=== PATIENT | female | born 1975 | race Caucasian/White ===

== ENCOUNTER → 2017-01-17 | Outpatient (CLI) | payer BC ==
[~2017-01-17] MED LIST: ATOR10TA88 PO; BCPILLS PO; HYDR-5688 PO; NAPR-1169 PO
--- NOTE | 2017-01-20 14:32 | MAMMOGRAPHY REPORT ---
BILATERAL DIGITAL SCREENING MAMMOGRAM TOMOSYNTHESIS WITH CAD: 01/17/2017 CLINICAL HISTORY: Routine screening. Patient has no complaints. TECHNIQUE: Breast tomosynthesis in addition to standard 2D mammography was performed. Current study was also evaluated with a Computer Aided Detection (CAD) system. COMPARISON: Comparison is made to exams dated: 01/16/2016 mammogram, 01/11/2015 mammogram, and 09/20/2013 mammogram - [facility]. BREAST COMPOSITION: The tissue of both breasts is almost entirely fatty. FINDINGS: There is a 4.1 cm asymmetry seen within the left lateral breast on the cc view, thought to project superiorly on the MLO view, which may represent normal fibroglandular tissue although appear s more conspicuous compared to prior exams. Recommend spot compression tomosynthesis views and possi ble breast ultrasound for further evaluation. Remainder of both breasts are stable compared to prior exams, without suspicious masses, calcificatio ns, or areas of architectural distortion noted. IMPRESSION: ACR BI-RADS CATEGORY 0: INCOMPLETE EVALUATION: NEED ADDITIONAL IMAGING EVALUATION Left breast asymmetry, for which additional imaging evaluation is recommended. The patient will be c alled to schedule an appointment. Approximately 10% of breast cancers are not detected with mammography. A negative mammographic report should not delay biopsy if a clinically suggestive mass is present. Carlie Machado M.D. /:01/17/2017 16:36:33 Corrections Specialist: Tracey TRISTAN)(Cheyanne), [facility] letter sent: Addl Imaging 0 BI-RADS Code: ACR BI-RADS Category 0: Incomplete Evaluation: Need Additional Imaging Evaluation
== END | disposition home or self-care (01) ==
LOC: C.MAMM 08:37
PROVIDERS: ATTEND Obstetrics & Gynecology
DX: Z12.31 Encounter for screening mammogram for malignant neoplasm of breast (principal); N64.9 Disorder of breast, unspecified

== ENCOUNTER → 2017-01-29 | Outpatient (CLI) | payer BC ==
--- NOTE | 2017-01-29 15:59 | MAMMOGRAPHY REPORT ---
UNILATERAL LEFT DIGITAL DIAGNOSTIC MAMMOGRAM TOMOSYNTHESIS AND TARGETED LEFT ULTRASOUND: 01/29/2017 CLINICAL HISTORY: Callback from screening mammogram for left breast asymmetry. TECHNIQUE: Breast tomosynthesis in addition to standard 2D mammography was performed. Spot compress ion left CC and MLO 2-D and tomosynthesis images were obtained. COMPARISON: Comparison is made to exams dated: 01/17/2017 mammogram, 01/16/2016 mammogram, 01/11/2015 efe mogram, and 09/20/2013 mammogram - [facility]. BREAST COMPOSITION: The tissue of the left breast is almost entirely fatty. FINDINGS: Spot compression views of the left breast demonstrate a persistent 4.2 cm asymmetry within the left upper outer quadrant. The asymmetry has the appearance of fibroglandular tissue on the svetlana synthesis images, however, it appears more prominent compared to prior exams including the 2013 exam. Targeted ultrasound was performed of the left upper outer quadrant in the region of the mammographic asymmetry. In the left breast from 12 to 2:00, centered around 3 cm from the nipple, there is mixed echogenicity tissue which has hyperechoic and hypoechoic areas. This is felt to correspond with the mammographic asymmetry, and could represent normal fibroglandular tissue or PASH, however, it is inde terminate and ultrasound-guided core needle biopsy is recommended for further evaluation. IMPRESSION: ACR BI-RADS CATEGORY 4A: LOW SUSPICION FOR MALIGNANCY, TARGETED ULTRASOUND ACR BI-RADS C ATEGORY 4A: LOW SUSPICION FOR MALIGNANCY Increased prominence of a left upper outer quadrant asymmetry, with corresponding mixed echogenicity tissue seen in the left 12 to 2:00 breast on ultrasound. While this could represent normal fibroglan dular tissue or PASH, it is indeterminate and ultrasound-guided core needle biopsy is recommended for further evaluation. A phone call was made to the physician's office to confirm faxed results were received. The patient has been verbally notified of the results. She tentatively scheduled the biopsy before leaving the [facility]. Approximately 10% of breast cancers are not detected with mammography. A negative mammographic report should not delay biopsy if a clinically suggestive mass is present. Carlie Machado M.D. ah/:01/29/2017 09:41:21 Bridge Opener: Tracey TRISTAN)(Cheyanne), [facility] letter sent: Abnormal 09/11 BI-RADS Code: ACR BI-RADS Category 4A: Low Suspicion For Malignancy Ultrasound BI-RADS: ACR BI-RADS Category 4A: Low Suspicion For Malignancy
== END | disposition home or self-care (01) ==
LOC: C.MAMM 09:08
PROVIDERS: ATTEND Obstetrics & Gynecology
DX: N64.89 Other specified disorders of breast (principal)

== ENCOUNTER → 2017-02-06 | Outpatient (CLI) | payer BC ==
--- NOTE | 2017-02-06 11:20 | Discharge Instructions ---
Discharge Instructions Procedure Procedure Date: Feb 06, 2017. Reason for visit: Left Asymmetry. Discharge Discharge Date: Feb 06, 2017. Discharge Diagnosis: status post breast biopsy Instructions Activity Recommendations: Additional Limitations (see below) Return to School/Work: no limitations Recommended Home Diet: No Limitations Provider Instructions: ACTIVITY RECOMMENDATIONS: * No lifting, pushing, pulling or exercising the affected side for three days. RETURN TO SCHOOL/WORK: * You may return to work/school after the procedure, but do not perform any strenuous activities for 24 to 48 hours. MEDICATIONS: * Tylenol (two 325 mg) every four to six hours if needed for mild pain (if not allergic to Tylenol). DIET: * Resume previous diet. SPECIAL CARE INSTRUCTIONS: * Keep biopsy site dry for 24 hours. May shower after 24 hours, but do not soak (bathe) incision. * May remove Tegaderm (plastic patch) tomorrow AFTER showering. * Leave the steri-strips on for one week. Allow the steri-strips to fall off by themselves. If not off after one week, you may remove them. You may place a Bandaid crosswise over the strips, if desired. * Apply ice 10 minutes on and 10 minutes off as needed. * Wear a bra at bedtime to sleep more comfortably for 2-3 days. * Your referring physician should have the results after approximately 5 to 7 business days. * Call for unusual bleeding, fever, drainage, etc or if you have any questions call during normal business hours or after hours call Dr Machado, . FOLLOW UP VISIT: Follow-up with Referring Physician as scheduled. Allergies Coded Allergies: No Known Allergies (Unverified , 08/22/15) Chel Nickerson Recommendations: Call your doctor if: * Temperature above 101 degrees * Pain not relieved by pain medicine ordered * There is increased drainage or redness from any incision * You have any unanswered questions or concerns. Your Doctors Instructions noted above were prepared by provider Carlie Machado. Patient Signature Section: Patient Instructions Signature Page Tiffani Bray Patient (or Guardian) Signature/Date: I have read and understand the instructions given to me by my caregivers. Caregiver/RN/Doctor Signature/Date: The above-named patient and/or guardian has received patient instructions on this date. + Original Patient Signature Page (only) stays with chart. Please make copy for patient.
--- NOTE | 2017-02-06 12:39 | MAMMOGRAPHY REPORT ---
UNILATERAL LEFT DIGITAL DIAGNOSTIC MAMMOGRAM TOMOSYNTHESIS: 02/06/2017 CLINICAL HISTORY: Status post ultrasound guided biopsy of mixed echogenicity tissue in the left 1:00 breast. TECHNIQUE: Breast tomosynthesis in addition to standard 2D mammography was performed. Postprocedura l left CC and ML tomosynthesis images including C views were obtained. COMPARISON: Comparison is made to exams dated: 01/29/2017 ultrasound, 01/29/2017 mammogram, 01/17/2017 mammogram, 01/16/2016 mammogram, 01/11/2015 mammogram, and 09/20/2013 mammogram - [facility]. BREAST COMPOSITION: The tissue of the left breast is almost entirely fatty. FINDINGS: A new biopsy marker clip is seen at the site of the mammographic asymmetry in the left upp er outer quadrant status post ultrasound guided biopsy of mixed echogenicity tissue in the left 1:00 breast, indicating good correlation between the biopsied sonographic finding and the mammographic asy mmetry. No significant postbiopsy hematoma is seen. IMPRESSION: POST PROCEDURE IMAGING FOR MARKER PLACEMENT New biopsy marker clip status post left breast ultrasound guided biopsy. Pathology results are pendi ng. Approximately 10% of breast cancers are not detected with mammography. A negative mammographic report should not delay biopsy if a clinically suggestive mass is present. Carlie Machado M.D. /:02/06/2017 11:30:24 Brush Hand: Saba TRISTAN)(Cheyanne), [facility] BI-RADS Code: Post Procedure Imaging For Marker Placement
--- NOTE | 2017-02-06 12:39 | MAMMOGRAPHY REPORT ---
ULTRASOUND GUIDED BIOPSY LEFT BREAST: 02/06/2017 CLINICAL HISTORY: Mixed echogenicity tissue seen within the left 12 to 2:00 breast on ultrasound, whi ch correlates with the mammographic asymmetry. PATIENT CONSENT: The procedure, risks and benefits were discussed with the patient and informed writt en consent was obtained. A timeout was performed immediately prior to the procedure. PROCEDURE DESCRIPTION: With ultrasound guidance, aseptic technique, and lidocaine as the local anesth etic (1% lidocaine to anesthetize the skin and 1% lidocaine with epinephrine to anesthetize the deepe r tissues), the mixed echogenicity tissue in the left breast at 1:00 was sampled 4 times with a 14-ga uge Achieve biopsy needle. Immediately thereafter, with ultrasound guidance, aseptic technique, and lidocaine as the local anesthetic, a metallic localizer clip was placed at the biopsy site. Direct p ressure was applied to the site immediately post procedure and hemostasis was achieved. Postprocedur e unilateral mammograms were performed to confirm clip placement. The patient tolerated the procedur e without complication. She was given wound care instructions. The specimens were sent to pathology for analysis. COMPARISON: Comparison is made to exams dated: 01/29/2017 ultrasound, 01/29/2017 mammogram, 01/17/2017 mammogram, 01/16/2016 mammogram, 01/11/2015 mammogram, and 09/20/2013 mammogram - [facility]ter. IMPRESSION: ULTRASOUND GUIDED BIOPSY Ultrasound guided core needle biopsy of the mixed echogenicity tissue in the left breast at 1:00, wit h clip placement. The patient will receive pathology results from her referring provider. Carlie Machado M.D. /:02/06/2017 11:22:32 [employer]: Saba TRISTAN)(Cheyanne), [facility]
== END | disposition home or self-care (01) ==
LOC: C.MAMM 10:56
PROVIDERS: ATTEND Obstetrics & Gynecology
DX: N64.9 Disorder of breast, unspecified (principal); N62 Hypertrophy of breast

== ENCOUNTER → 2018-01-23 | Outpatient (CLI) | payer BC ==
[~2018-01-23] MED LIST changes: +ATOR10TA82 PO; -ATOR10TA88 PO; -NAPR-1169 PO; +NAPR-22 PO
--- NOTE | 2018-01-23 15:41 | MAMMOGRAPHY REPORT ---
BILATERAL DIGITAL SCREENING MAMMOGRAM TOMOSYNTHESIS WITH CAD: 01/23/2018 CLINICAL HISTORY: Routine screening. Patient has no complaints. Asymmetry. TECHNIQUE: The study was acquired using full field digital technology and interpreted from soft copy. Breast tomosynthesis in addition to standard 2D mammography was performed. Current study was also ev aluated with a Computer Aided Detection (CAD) system. COMPARISON: Comparison is made to exams dated: 02/06/2017 mammogram, 01/29/2017 mammogram, 01/17/2017 m ammogram, 01/16/2016 mammogram, and 01/11/2015 mammogram - [facility]. BREAST COMPOSITION: There are scattered areas of fibroglandular density in both breasts. FINDINGS: No suspicious masses, calcifications, or areas of architectural distortion are noted in either breast . There has been no significant interval change compared to prior exams. Asymmetry with associated b iopsy marker clip in the left upper outer quadrant is stable. IMPRESSION: ACR BI-RADS CATEGORY 2: BENIGN There is no mammographic evidence of malignancy. A 1 year screening mammogram is recommended.( [id number]) The patient will receive written notification of the results. Some breast cancers are not detected with mammography. A negative mammographic report should not ginger y biopsy if a clinically suggestive mass is present. Carlie Machado M.D. /:01/23/2018 12:25:44 Outreach Liaison: RT Sosa(R)(M), [facility] letter sent: Normal 1/2 BI-RADS Code: ACR BI-RADS Category 2: Benign
== END | disposition home or self-care (01) ==
LOC: C.MAMM 08:47
PROVIDERS: ATTEND Neuromusculoskeletal Medicine & OMM
DX: Z12.31 Encounter for screening mammogram for malignant neoplasm of breast (principal)